=== PATIENT | female | born 1980 ===

== ENCOUNTER 2016-12-31 15:36 | Emergency (ER) | payer MEDICAID, OTHER ==
[2016-12-31 15:54] VITALS: BP 109/78
[2016-12-31] MEDS ORDERED: Diazepam 5 MG Tab PO ONE (16:21)
[2016-12-31] MEDS ORDERED: HYDROmorphone 1 MG/ML Syringe IVPUSH ONE ×2 (16:21→17:34)
[2016-12-31] MEDS ORDERED: Ketorolac 30 MG/ML SDV IVPUSH ONE (16:21)
[2016-12-31] MEDS ORDERED: Sodium Chloride 0.9% 10 ML Syringe FLUSH PRN (16:21)
--- NOTE | 2016-12-31 17:41 | EDM.PDOC ---
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 Patient reports about an hour prior to arrival in the ED she was lifting a box weighing about 10 pounds. She states she suddenly felt severe stabbing pain in her low back. Reports the back pain is in the midline above her tailbone. Denies any fevers, numbness, tingling, nausea, vomiting, urinary incontinence or stool incontinence. Patient has chronic low back pain due to "degenerative disc". She has previously been seen by orthopedics in [place]. She has been referred to neurosurgery. She has seen 3 different neurosurgeons but has been told she does not need surgery. She reports she has done PT in the past but is not currently in PT. She is currently waiting to get into a pain management clinic out of [place]. Patient reports she has been stretching and hiking and doing well with at home treatments. 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 She has had chronic low back pain for years. Last MRI on file in [place] was from . She reports she had a MRI done in [place] several weeks ago. Reports no new findings. Onset: Today, Sudden Duration: Chronic (acute on chronic) Location: Reports: Back (midline lower back) Quality: Reports: Stabbing Treatments FLOORHAND: Reports: Other (see below) Other Treatments FLOORHAND: fentanyl Right Lower Back Pain Score (Numeric/FACES): 9 - Related Data Allergies Allergy/AdvReac Type Severity Reaction Status Date / Time amoxicillin [Amoxicillin] Allergy Rash Verified 12/31/16 15:55 Penicillins Allergy Rash Verified 12/31/16 15:55 Home Meds: Home Meds Acetaminophen/HYDROcodone [[place] 325-5 MG] 1 - 2 tab PO Q6H PRN #15 tablet 06/03 [Rx] ClonazePAM [KlonoPIN] 0.5 mg PO DAILY 06/03/16 [History] Diazepam [Valium] 5 mg PO BID PRN #10 tablet 06/03/16 [Rx] hydrOXYzine HCl [Atarax] 50 mg PO BEDTIME 06/03/16 [History] tiZANidine [Zanaflex] 4 mg PO TID 06/03/16 [History] Past Medical History - Past Health History Medical/Surgical History: Denies Medical/Surgical History Cardiovascular History: Reports: None Respiratory History: Reports: Asthma Genitourinary History: Reports: None Other OB/BYN History: exploratory laparoscopy Musculoskeletal History: Reports: Back Pain, Chronic Other Musculoskeletal History: left shoulder rotator cuff tear Neurological History: Reports: Migraines Psychiatric History: Reports: Anxiety, Depression Hematologic History: Reports: None Dermatologic History: Reports: None - Infectious Disease History Infectious Disease History: Reports: Chicken Pox - Past Surgical History HEENT Surgical History: Reports: Adenoidectomy Other HEENT Surgeries/Procedures: adenoidectomy GI Surgical History: Reports: Other (See Below) Other Female Surgeries/Procedures: laparoscopy Musculoskeletal Surgical History: Reports: Other (See Below) Social & Family History - Family History Family Medical History: Noncontributory - Tobacco Use Smoking Status *Q: Current Every Day Smoker Years of Tobacco use: 15 Packs/Tins Daily: 0.5 Used Tobacco, but Quit: No Second Hand Smoke Exposure: No - Caffeine Use Caffeine Use: Reports: Soda - Alcohol Use Days Per Week of Alcohol Use: 0 - Recreational Drug Use Recreational Drug Use: No Drug Use in Last 12 Months: No ED ROS GENERAL - Review of Systems Review Of Systems: See Below Constitutional: Denies: Fever GI/Abdominal: Denies: Nausea, Stool Incontinence, Vomiting : Denies: Dysuria, Incontinence Musculoskeletal: Reports: Back Pain (midline low back no radiation into neck or legs). Denies: Neck Pain Neurological: Denies: Numbness, Tingling ED EXAM,LOWER BACK PAIN/INJURY - Physical Exam Exam: See Below Exam Limited By: No Limitations General Appearance: Alert, WD/WN, No Apparent Distress, Other (patient is laying in the position on her left side during my examination; refuses to lay on back) Back Exam: Normal Inspection, Paraspinal Tenderness, Vertebral Tenderness, Other (light palpation to the low back both spinous process and paraspinal muscles casued the patient severe pain and she suddenly straightened her back and returned to the position several times; she appears to be dramatazing as this is out of porportion to examination). No: Muscle Spasm Extremities: Normal Inspection Neurological: Alert, Normal Dorsiflexion, Normal Plantar Flexion, Difficulty Walking (she grabs onto hand rails and wlaks slowly and delibertly). No: Straight Leg Raise (L) (able to be preformed after medication administration able to preform to 90 degrees; reports pain at < 15 degrees), Straight Leg Raise (R) (able to be preformed after medication administrated reports pain at > 60 degrees and a <15 degrees) Psychiatric: Normal Affect, Normal Mood Skin Exam: Warm, Dry, Normal Color Course - Vital Signs Last Recorded V/S: Last Vital Signs Temp 36.4 C 12/31/16 15:43 Pulse 109 H 12/31/16 15:43 Resp 16 12/31/16 15:43 BP 109/78 12/31/16 15:43 Pulse Ox 100 12/31/16 15:43 - Orders/Labs/Meds Orders: Active Orders 24 hr Category Date Time Status Peripheral IV Care [RC] . DIRECTED Care 12/31/16 16:22 Active Peripheral IV Insertion Adult [OM.PC] Routine Oth 12/31/16 16:21 Ordered Meds: Medications Discontinued Medications Generic Name Dose Route Start Last Admin Trade Name Augie PRN Reason Stop Dose Admin Diazepam 5 mg 12/31/16 16:21 12/31/16 16:36 Valium. PO 12/31/16 16:22 5 mg ONETIME ONE Administration Hydromorphone HCl 1 mg 12/31/16 16:21 12/31/16 16:34 Dilaudid IVPUSH 12/31/16 16:22 1 mg ONETIME ONE Administration Hydromorphone HCl 0.5 mg 12/31/16 17:34 12/31/16 17:49 Dilaudid IVPUSH 12/31/16 17:35 0.5 mg ONETIME ONE Administration Ketorolac Tromethamine 30 mg 12/31/16 16:21 12/31/16 16:32 Toradol IVPUSH 12/31/16 16:22 30 mg ONETIME ONE Administration Sodium Chloride 10 ml 12/31/16 16:21 12/31/16 16:36 Saline Flush FLUSH 10 ml ASDIRECTED PRN Administration Keep Vein Open - Re-Assessments/Exams Free Text/Narrative Re-Assessment/Exam: 12/31/16 16:50 Plan will be to treat acute pain in the ER. She may have pulled or strained a muscle but her mechanism of injury and physical exam is not consistent with a fracture or herniated disc. I will give her the benefit of the doubt tonight but I feel she is likely drug seeking. I see no need for imaging tonight. She recently had an MRI in [place]. Will give 5PO valvium, toradol IV 30mg and Dilaudid 1mg IV. She has received fentanyl 100mcg prior to arrival in the ER. Patient searched on the [place] prescription drug registry. 30 prescriptions for controlled substances from 8 prescribers in the last year. This includes both narcotics and benzos. Last narcotic fill was percocet 5-325 #60 on 11-04-16. 12/31/16 17:35 Will give an additional 0.5 mg IV dilaudid for pain prior to discharge. Discharge instructions as documented. No prescription for narcotics to be given. Departure - Departure Time of Disposition: 17:42 Disposition: Home, Self-Care 01 Condition: Fair Clinical Impression: Chronic back pain Qualifiers: Back pain location: back pain in unspecified location Back pain laterality: midline Qualified Code(s): M54.9 - Dorsalgia, unspecified - Discharge Information Instructions: Back Exercises, [id number], Chronic Back Pain Referrals: Temitope Valdivia PA-C [Primary Care Provider] - Forms: ED Department Discharge Additional Instructions: Follow-up with your primary care provider for further pain medication management. Continue with your current plan of care. Rest but cannot be completely bedridden. Gentle stretching and range of motion as tolerated. If you experience pain with activity I recommend he stop and rest. Estimated use ice or moist heat to the sore areas. Please return to the ER for symptoms change or worsen. - My Orders Last 24 Hours: My Active Orders 12/31/16 16:21 Peripheral IV Insertion Adult [OM.PC] Routine 12/31/16 16:22 Peripheral IV Care [RC] . DIRECTED - Assessment/Plan Last 24 Hours: My Active Orders 12/31/16 16:21 Peripheral IV Insertion Adult [OM.PC] Routine 12/31/16 16:22 Peripheral IV Care [RC] . DIRECTED
== END 2016-12-31 18:19 | disposition home or self-care (01) ==
LOC: JD.ED 15:36
DX: M54.5 Low back pain (principal); G89.29 Other chronic pain; J45.909 Unspecified asthma, uncomplicated; G43.909 Migraine, unspecified, not intractable, without status migrainosus; F41.9 Anxiety disorder, unspecified; F17.210 Nicotine dependence, cigarettes, uncomplicated; F32.9 Major depressive disorder, single episode, unspecified; Z98.890 Other specified postprocedural states; Z79.899 Other long term (current) drug therapy; Z88.0 Allergy status to penicillin; Z88.1 Allergy status to other antibiotic agents
CPT/HCPCS: 96374; 96375; 96376; 99284; A9270; J1170; J1885; J7050

== ENCOUNTER 2017-02-15 14:01 | Emergency (ER) | payer OTHER, MEDICAID ==
[2017-02-15] MEDS ORDERED: Sodium Chloride 0.9% 10 ML Syringe FLUSH PRN (14:17)
[2017-02-15] MEDS ORDERED: HYDROmorphone 1 MG/ML Syringe IVPUSH ONE (14:21)
--- NOTE | 2017-02-15 14:41 | CT ---
Head CT Technique: Multiple axial sections through the brain were obtained. Intravenous contrast was not utilized. Comparison: Previous head CT exam of 06/05/13. Findings: Ventricles along with basal cisterns and sulci over the convexities are within normal limits for the patient's age. No abnormal parenchymal densities are seen. No evidence of intracranial hemorrhage. No midline shift or mass effect is seen. Bone window settings were reviewed which shows no discrete calvarial abnormality. Visualized sinuses are clear. Impression: 1. No acute intracranial abnormality is seen. No significant change is seen from prior head CT exam. Diagnostic code #1
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
--- NOTE | 2017-02-15 15:37 | CR ---
Left wrist: Four views of the left wrist were obtained. Comparison: No previous study. Joint spaces are maintained. No fracture, dislocation or other bony abnormality is seen. Impression: 1. No abnormality is identified on four-view left wrist exam. Diagnostic code #1
[2017-02-15 17:06] VITALS: BP 125/78
== END 2017-02-15 16:45 | disposition home or self-care (01) ==
LOC: JD.ED 14:01
DX: S51.812A Laceration without foreign body of left forearm, initial encounter (principal); F41.9 Anxiety disorder, unspecified; F32.9 Major depressive disorder, single episode, unspecified; J45.909 Unspecified asthma, uncomplicated; F17.210 Nicotine dependence, cigarettes, uncomplicated; Z88.0 Allergy status to penicillin; Z88.1 Allergy status to other antibiotic agents; Z79.899 Other long term (current) drug therapy; Z98.890 Other specified postprocedural states; V49.9XXA Car occupant (driver) (passenger) injured in unspecified traffic accident, initial encounter
CPT/HCPCS: 36415; 70450; 73110; 80053; 80306; 81001; 84703; 85025; 96374; 99285; G0480; J1170; J7050; 99284